=== PATIENT | male | born 1980 | race Caucasian/White ===

== ENCOUNTER 2021-09-28 08:25 | Outpatient (CLI) | payer BC | END 2021-09-28 08:26 | disposition home or self-care (01) | LOC: CSHULT 08:25 | PROVIDERS: ATTEND Urology | DX: N48.6 Induration penis plastica (principal); Z72.0 Tobacco use; Z87.442 Personal history of urinary calculi; R39.198 Other difficulties with micturition | CPT/HCPCS: 76770 ==